=== PATIENT | female | born 1940 | race Caucasian/White ===

== ENCOUNTER 2019-09-22 06:56 | Day surgery (SDC) | payer OTHER ==
[2019-09-16 12:14] VITALS: BMI 19.5
[2019-09-22] MEDS ORDERED: BUPIVACAINE HCL/PF 2.5 MG/ML - 30 ML VIAL IJ ONE (07:51)
[2019-09-22] MEDS ORDERED: GUM MASTIC/STORAX/MSAL/ALCOHOL 1 DRP DROPSBTL MC ONE (07:51)
[2019-09-22] MEDS ORDERED: MIDAZOLAM HCL 2 MG/2 ML SINGLE DOSE VIAL ONE (07:56)
[2019-09-22] MEDS ORDERED: DEXAMETHASONE SOD PHOSPHATE/PF 10 MG/ML SDV ONE (07:56)
[2019-09-22] MEDS ORDERED: ROPIVACAINE HCL 0.5% 30ML VIAL ONE (07:56)
[2019-09-22] MEDS ORDERED: PROPOFOL 20 ML ONE ×3 (08:21→08:43)
[2019-09-22] MEDS ORDERED: SUCCINYLCHOLINE CHLORIDE 200 MG/10 ML SYRINGE ONE (08:35)
[2019-09-22] MEDS ORDERED: ONDANSETRON 4 MG/2 ML VIAL ONE (08:35)
[2019-09-22] MEDS ORDERED: DEXAMETHASONE SOD PHOSPHATE 4 MG/1 ML VIAL ONE (08:35)
[2019-09-22] MEDS ORDERED: ceFAZolin SODIUM 1 GM VIAL ONE (08:35)
[2019-09-22] MEDS ORDERED: oxyCODONE HCL 5 MG TABLET PO PRN (08:56)
[2019-09-22] MEDS ORDERED: ONDANSETRON 4 MG/2 ML VIAL IVPUSH PRN (08:56)
[2019-09-22] MEDS ORDERED: LACTATED RINGERS SOLUTION 1,000 ML IV SCH (09:00)
[2019-09-22 10:42] VITALS: TEMP 97.9
[2019-09-22 13:42] VITALS: BP 124/66; PULSE 70
--- NOTE | 2019-09-27 15:01 | OP ---
DATE OF OPERATION: 09/22/2019 PREOPERATIVE DIAGNOSIS: Right basal joint arthritis. POSTOPERATIVE DIAGNOSIS: Right basal joint arthritis. OPERATIVE PROCEDURE: 1. Right basal joint arthroplasty. 2. Right thumb carpometacarpal tendon transfer. SURGEON: Carmenza Schmidt MD TRAVELER CHANGER: PREETI Juan ANESTHESIA: Regional. COMPLICATIONS: None. ESTIMATED BLOOD LOSS: Minimal. INDICATIONS FOR PROCEDURE: The patient is a 79-year-old female with the above finding, indicated for operative treatment. The risks, benefits and alternatives were discussed with the patient at length. Proper informed consent was obtained. PROCEDURE: After proper identification of patient and correct operative site, patient was brought to the operating room, placed supine on the table, prominences well padded. Sedation and regional anesthesia were given. Intravenous antibiotics given. Timeout procedure was performed. Right upper extremity was prepped and draped in usual sterile fashion. Well-padded tourniquet was placed over the sterile prep. Esmarch bandage was used to exsanguinate right upper extremity. Tourniquet was inflated to 250 mmHg. Curvilinear incision made over the thumb base in a [place] approach. Incision was taken sharply through skin. Blunt dissection was performed through the subcutaneous tissues. Thenar muscles were elevated off of the carpometacarpal joint of the thumb. Longitudinal capsulotomy was performed and the carpometacarpal joint was opened. Severe arthrosis was noted with loose bodies as well as significant synovitis. The trapezium was removed with subperiosteal elevation as a whole piece. Arthroplasty space was adequate. A suspension plasty was then performed by placing an Arthrex SwiveLock anchor in the base of the 2nd metacarpal and using a labral taped suture suspending the metacarpal in the proper tension and securing with a second Arthrex SwiveLock anchor. This provided excellent motion and good stability for the arthroplasty. The capsule was repaired for hematoma formation and the extensor pollicis brevis was transferred to the dorsal aspect of the capsule for further augmentation. The wound was irrigated and repaired in layers using 4-0 Vicryl and 4-0 Monocryl suture. Steri-Strips and sterile dressings were applied. Splint was placed. Patient was reversed from anesthesia, brought to recovery room in stable condition. Tomasz Cuba, the title i assistant, was integral throughout this procedure. Procedure could not have been performed without a skilled operative title i assistant. CARMENZA SCHMIDT M.D. [facility]/[id number]
== END 2019-09-22 11:35 | disposition home or self-care (01) ==
LOC: FASU 06:56
PROVIDERS: ATTEND Orthopaedic Surgery Hand Surgery
PROC: 0RQS0ZZ Repair Right Carpometacarpal Joint, Open Approach (ICD-10-PCS; 2019-09-22)
PROC: 0LX70ZZ Transfer Right Hand Tendon, Open Approach (ICD-10-PCS; principal; 2019-09-22 08:54)
DX: M18.11 Unilateral primary osteoarthritis of first carpometacarpal joint, right hand (principal)
CPT/HCPCS: 94760